=== PATIENT | female | born 1995 | race Caucasian/White ===

== ENCOUNTER 2020-07-21 13:01 | Emergency (ER) | payer OTHER ==
[~2020-07-21 13:01] MED LIST: FERROUS SULFAT325 MG PO; PRENATAL VITAM1 EAC8 PO
[2020-07-21] MEDS ORDERED: IBUPROFEN600 MG PO (16:43)
== END 2020-07-21 16:57 | disposition home or self-care (01) ==
LOC: ER1 13:01
DX: S09.90XA Unspecified injury of head, initial encounter (principal); S13.4XXA Sprain of ligaments of cervical spine, initial encounter; V49.40XA Driver injured in collision with unspecified motor vehicles in traffic accident, initial encounter
CPT/HCPCS: 70450; 72125; 99283

== ENCOUNTER → 2021-01-31 | Outpatient (CLI) | payer OTHER ==
[~2021-01-31] MED LIST changes: +IBUPROFEN600 MG PO
== END ==
LOC: KOH-I 08:00
DX: M54.10 Radiculopathy, site unspecified (principal)
CPT/HCPCS: 72141